=== PATIENT | male | born 1970 | race African-American/Black ===

== ENCOUNTER 2021-07-06 18:26 | Emergency (ER) | payer MEDICAID, SELFPAY ==
[2021-07-06 18:26] VITALS: BP 162/85; PULSE 127; RESP 18; TEMP 36.9; O2SAT 9; BMI 23.7
--- NOTE | 2021-07-06 18:48 | EX.ED.DYSGE1 ---
HPI History of Present Illness Chief Complaint: Abscess Informant: patient and spouse/S.O. Onset/Context/Timing Onset: Days Context: Gradual Onset Timing: Continuous Current Severity: Mild Maximum Severity: Mild Narrative Narrative: 51-year-old male has a history of eczema. At times he will get abscesses on his arms. He drained the one on his left forearm. There is also one on his right elbow region. He denies fever via telemedicine. They have already prescribed him doxycycline which he just got filled. Prior similar symptoms: Yes Recent Illness/Hospitalization: No PFSH PFSH Medical History Eczema Allergy/AdvReac Type Severity Reaction Status Date / Time Penicillins [PCN] AdvReac Vomiting Verified 07/06/21 18:29 Social History Smoking Status: Current every day smoker tobacco type: cigarettes ROS ROS ED ROS Narrative Denies. Review of Systems ROS Unobtainable: Denies due to encephalopathy Constitutional Constitutional ED: Denies fever(s) Eyes Eyes: Denies change in vision ENT ENT ED: Denies ear pain Cardiovascular Cardiovascular: Denies chest pain Respiratory/Chest Respiratory/Chest: Denies dyspnea Gastrointestinal Gastrointestinal: Denies abdominal pain Genitourinary Genitourinary ED: Denies dysuria Musculoskeletal Musculoskeletal: Denies myalgias Integumentary Reports rash Neurologic Neurologic: Denies headache(s) Psychiatric Psychiatric: Denies depression Endocrine Endocrinology: Denies polyuria Allergic/Immunologic Allergic/Immunologic ED: Denies urticaria EXAM Physical Exam Narrative Exam Narrative: gentleman no acute distress. Vital signs stable afebrile. HEENT exam unremarkable. Neck nontender. Lungs are clear. Heart regular rhythm. Abdomen soft nontender. Moving all 4 extremities. Neurovascular intact. No cellulitis. Right elbow is minimally swollen. Is full flexion-extension. There is no signs of septic joint. No cellulitis. There is no palpable abscess or fluctuance. There is no axillary lymphadenopathy. Left proximal forearm there is an area where the prior abscess has been drained. There is no fluctuance. No cellulitis. No streaks. No axillary lymphadenopathy. Otherwise exam unremarkable. Const Vital Signs: 07/06/21 18:26 Temperature 98.5 F Temperature Source Temporal Pulse Rate 127 H Respiratory Rate 18 Blood Pressure 162/85 H Blood Pressure Mean 110 Pulse Ox 9 Positive well nourished and well developed; Negative for obese, cachectic, contractures or unkempt General Appearance ED: well developed and NAD; Negative for unkempt, cachectic or contractures Nutritional Appearance: Negative for cachectic or obese HEENT Reports moist mucous membranes Negative for trauma or tenderness Eyes PERRL and EOMs intact bilaterally Neck no lymphadenopathy, supple and no JVD Chest Wall inspection of chest normal and palpation of chest normal Resp normal respiratory effort and clear to auscultation bilaterally Effort and Inspection: Negative for pain with movement Auscultation: Negative for rales, rhonchi or wheezes Cardio regular rate, regular rhythm, S1 normal heart sound, S2 normal heart sound and no murmurs GI normal to inspection, nondistended, normoactive bowel sounds, non-tender, non-distended and no masses Inspection: Negative for abdominal distention Auscultation: normoactive bowel sounds Palpation: soft; Negative for tender, guarding or rebound tenderness present Back/Spine no CVA tenderness General Back: Negative for CVA tenderness Extremity normal to inspection Extremity Narrative: Left elbow. Right proximal forearm. General Extremety ED: Yes edema and tenderness General Extremity: edema Neuro oriented x3 Sensorium / Orientation: alert Motor Exam: strength 5/5 throughout Psych mental status grossly normal Appearance: Negative for unkempt Skin no rashes or lesions noted and No no wounds Skin Narrative: Healing left forearm abscess has been drained. Right elbow swelling. No cellulitis. No axillary lymphadenopathy. MDM MDM MDM Narrative Medical decision making narrative: Patient is eczema has an abscess in the left forearm that is resolving. It is already been drained by himself. He has mild swelling in his right elbow but there is no septic joint or cellulitis. 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 Discharge Plan Triage Chief Complaint: Abscess ED Provider: Case Lane Dx/Rx/DC Orders Clinical Impression: Abscess Instructions: ED Abscess Antibiotic Treatment Only Primary Care Provider: Care Physician,No Primary Referrals: Aliyah Rivera MD [NON-STAFF] - 1 Week if not improving Jorge Hebert MD [STAFF PHYSICIAN] - As Needed Town Doctor,Out of [NON-STAFF] - Activity Restrictions/Additional Instructions: Take your doxycycline antibiotic prescription as prescribed 1 pill twice a day for 2 weeks. Both forearms should progressively improve if not you need to be reevaluated. Ice and elevate the form to decrease pain and swelling. Motrin or naproxen for pain and swelling. Return if fever, redness or feeling worse or the arms are getting more swollen. Disposition Disposition: Home, Self Care
[2021-07-06 18:56] VITALS: RESP 16
== END 2021-07-06 18:57 | disposition home or self-care (01) ==
PROVIDERS: Emergency Provider Emergency Medicine
DX: L02.414 Cutaneous abscess of left upper limb (principal); F17.210 Nicotine dependence, cigarettes, uncomplicated
CPT/HCPCS: 99283

== ENCOUNTER 2021-10-04 06:27 | Emergency (ER) | payer SELFPAY ==
[2021-10-04 06:28] VITALS: BP 148/110; PULSE 104; RESP 16; TEMP 36.2; O2SAT 98; BMI 25.1
--- NOTE | 2021-10-04 07:27 | EDS_ITS ---
HPI History of Present Illness Chief Complaint: Rash Narrative Narrative: 51-year-old male presenting with rash on the left flank. Patient states that he has eczema initially thought this was a flareup, however his left flank became red. Patient states that the rash is spreading from the left posterior flank to the left abdomen. No systemic signs or symptoms. Patient has tried changing all of his detergents. He has tried topical creams [id number] none are working. [facility] Medical History Eczema Home Medications doxycycline hyclate 100 mg PO BID #14 tab 10/04/21 [Rx Last Taken Unknown] Allergy/AdvReac Type Severity Reaction Status Date / Time Penicillins [PCN] AdvReac Vomiting Verified 10/04/21 06:30 Social History Smoking Status: Current every day smoker tobacco type: cigarettes ROS ROS ED Constitutional Constitutional ED: Denies chills or fever(s) Eyes Eyes: Denies blurry vision or change in vision ENT ENT ED: Denies rhinorrhea Cardiovascular Cardiovascular: Denies chest pain or palpitations Respiratory/Chest Respiratory/Chest: Denies cough or dyspnea Gastrointestinal Gastrointestinal: Denies abdominal pain, nausea or vomiting Genitourinary Genitourinary ED: Denies dysuria or hematuria Musculoskeletal Musculoskeletal: Denies arthralgias or myalgias Integumentary Reports rash Neurologic Neurologic: Denies headache(s) or weakness EXAM Physical Exam Const Vital Signs: 10/04/21 06:28 Temperature 97.2 F L Temperature Source Temporal Pulse Rate 104 H Respiratory Rate 16 Blood Pressure 148/110 H Blood Pressure Mean 122 Pulse Ox 98 Oxygen Delivery Method Room Air Positive well nourished General Appearance ED: NAD HEENT Reports moist mucous membranes Negative for trauma Eyes PERRL and EOMs intact bilaterally Cardio regular rate and regular rhythm GI normal to inspection, nondistended, normoactive bowel sounds Neuro oriented x3 and CN's II-XII intact bilaterally Sensorium / Orientation: alert Psych mental status grossly normal Skin Skin Narrative: Erythematous scaly rash in the left flank which is not isolated to any dermatome. Slightly increased warmth. No crepitance. MDM MDM MDM Narrative Medical decision making narrative: Patient likely has cellulitic changes to areas of his eczema on the left flank. I will start the patient on antibiotics. He is counseled against the use calamine lotion to help with itching. He is to keep the area clean and dry otherwise. Patient discharged in stable patient. Impression: 1. Cellulitis Discharge Plan Triage Chief Complaint: Rash ED Provider: Lyndon Roman Dx/Rx/DC Orders Instructions: ED Cellulitis Prescriptions: New doxycycline hyclate 100 mg tablet 100 mg PO BID Qty: 14 RF: 0 Primary Care Provider: Care Physician,No Primary Referrals: Jolanta Kaur MD [STAFF PHYSICIAN] - 3-5 Days Care Physician,No Primary [Primary Care Provider] - Disposition Disposition: Home, Self Care
[2021-10-04] MEDS: Doxycycline 100 MG CAPSULE PO (07:31)
[2021-10-04 07:33] VITALS: BP 142/96; PULSE 86; RESP 18
== END 2021-10-04 07:34 | disposition home or self-care (01) ==
PROVIDERS: Emergency Provider Student in an Organized Health Care Education/Training Program; Visit Provider Student in an Organized Health Care Education/Training Program
DX: L03.311 Cellulitis of abdominal wall (principal); F17.210 Nicotine dependence, cigarettes, uncomplicated
CPT/HCPCS: 99283

== ENCOUNTER 2022-01-03 06:42 | Emergency (ER) | payer MEDICAID, SELFPAY ==
[2022-01-03 06:44] VITALS: BP 148/98; PULSE 68; RESP 16; TEMP 27.1; O2SAT 98; BMI 25.5
--- NOTE | 2022-01-03 06:50 | RAD_ITS ---
EXAM: XR RIGHT WRIST COMPLETE, 3 OR MORE VIEWS CLINICAL INDICATION: pain TECHNIQUE: Frontal, lateral and oblique views of the right wrist. This report was created using [employer] report generation technology. COMPARISON: None. FINDINGS: BONES/JOINTS: Unremarkable. No acute fracture. No subluxation. Normal alignment. Preservation of the joint space. No sclerotic or destructive changes observed. SOFT TISSUES: Unremarkable. No soft tissue swelling or gas. No radiopaque foreign body. RAD/Wrist min 3 Views IMPRESSION: Negative right wrist x-rays. Electronically Signed: Rikki Gutierrez MD at 7:20 EDT ,
--- NOTE | 2022-01-03 06:51 | EDS_ITS ---
HPI <Dr. Magdiel Toney MD - Last Filed: 01/03/22 06:55> History of Present Illness Chief Complaint: Upper Extremity Injury Informant: patient and spouse/S.O. Narrative Narrative: Patient complains of right wrist pain. He has had this off and on for a long time. When it bothers him he will place a thumb spica splint on the area to help. For the last few months its just been bothering him more. All the pain is on the dorsum of the thumb and lateral radial area. He denies any acute trauma. There is no fevers chills or sweats. Sometimes he feels as though there is stiffness in there. 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 He is also right-hand dominant. No other joints hurt. Patient has no medical illness and is on no medications. Allergy to penicillin. [facility] <Dr. Magdiel Toney MD - Last Filed: 01/03/22 06:55> [facility] Medical History Eczema Medical History no medical history Home Medications naproxen 500 mg tablet 500 mg PO BID #20 tabs 01/03/22 [Rx Last Taken Unknown] Allergy/AdvReac Type Severity Reaction Status Date / Time Penicillins [PCN] AdvReac Vomiting Verified 01/03/22 06:43 Surgical History no surgical history Social History Smoking Status: Current every day smoker tobacco type: cigarettes ROS <Dr. Magdiel Toney MD - Last Filed: 01/03/22 06:55> ROS ED Constitutional Constitutional ED: Denies fever(s) Musculoskeletal Musculoskeletal: Reports other Details: Right wrist pain as in history of present illness peer ; Denies neck pain Integumentary Denies abscess, Abrasions or rash Neurologic Neurologic: Denies paresthesias or weakness Hematologic/Lymphatic Hematologic/Lymphatic: Denies lymphadenopathy Allergic/Immunologic Allergic/Immunologic ED: Denies urticaria EXAM <Dr. Magdiel Toney MD - Last Filed: 01/03/22 06:55> Physical Exam Const Vital Signs: 01/03/22 06:44 Temperature 80.7 F L Temperature Source Temporal Pulse Rate 68 Respiratory Rate 16 Blood Pressure 148/98 H Blood Pressure Mean 114 Pulse Ox 98 Oxygen Delivery Method Room Air Positive well nourished and well developed General Appearance ED: well developed and NAD HEENT normocephalic and atraumatic Resp normal respiratory effort Extremity Extremity Narrative: There may be some very subtle swelling along the extensor tendons for the right thumb. He has a very positive Haley's test. He is more tender on the tendon than actually in the snuffbox. There is no erythema or warmth. There is no rash. No pain more proximally in the arm. No pain with shoulder or elbow motion. Neuro no sensory deficits noted Sensorium / Orientation: alert Psych mental status grossly normal Skin Skin Narrative: No rashes erythema or skin breakdown. [facility] <Dr. Magdiel Toney MD - Last Filed: 01/03/22 06:55> [facility] Narrative Medical decision making narrative: Patient's symptoms and exam are most consistent with de Quervain's tenosynovitis. However, he has had off-and-on symptoms for a while. I would like to do x-rays to make sure we do not see old scaphoid or other wrist fracture with nonunion. As long as his x-ray shows no significant process, I think he can be treated with nonsteroidal splinting. Another option is short course of steroids as he has been taking Motrin. Orthopedic follow-up for possible injection could be beneficial. We are pending x-rays at this time. <Dr. Lester Leiva MD - Last Filed: 01/03/22 07:14> [facility] Narrative Medical decision making narrative: Patient's symptoms and exam are most consistent with de Quervain's tenosynovitis. However, he has had off-and-on symptoms for a while. I would like to do x-rays to make sure we do not see old scaphoid or other wrist fracture with nonunion. As long as his x-ray shows no significant process, I think he can be treated with nonsteroidal splinting. Another option is short course of steroids as he has been taking Motrin. Orthopedic follow-up for possible injection could be beneficial. We are pending x-rays at this time. Patient initially seen and examined by Dr. Noble. X-ray was interpreted by me. Patient was informed of diagnosis, treatment and was referred to Dr. Castaneda who is on-call for orthopedics. Radiography Diagnostic Testing: Three-view x-ray of the wrist [place] [id number]. There is no calcification of the extensor pollicis brevis. There is no evidence of fracture, subluxation or dislocation. There is no evidence of prior fracture the joint spaces of the carpal bones are normal. Discharge Plan Triage Chief Complaint: Upper Extremity Injury ED Provider: Magdiel Toney Dx/Rx/DC Orders Clinical Impression: De Quervain's disease (tenosynovitis) Instructions: De Quervain Tenosynovitis Prescriptions: New naproxen 500 mg tablet 500 mg PO BID Qty: 20 0RF Primary Care Provider: Care Physician,No Primary Referrals: Fredis Lee MD [STAFF PHYSICIAN] - 5-7 Days Care Physician,No Primary [Primary Care Provider] - Activity Restrictions/Additional Instructions: 1. Where thumb spica splint is much as possible. 2. Take medication that was prescribed as instructed. 3. You have an inflammation a tendon. Since this is a chronic issue you were referred to Dr. Fredis Lee. Disposition Disposition: Home, Self Care
== END 2022-01-03 07:35 | disposition home or self-care (01) ==
LOC: ED 07:30
PROVIDERS: Emergency Provider Emergency Medicine; Visit Provider Emergency Medicine
DX: M65.4 Radial styloid tenosynovitis [de Quervain] (principal); L30.9 Dermatitis, unspecified; F17.210 Nicotine dependence, cigarettes, uncomplicated; Z79.1 Long term (current) use of non-steroidal anti-inflammatories (NSAID)
CPT/HCPCS: 73110; 99282

== ENCOUNTER 2022-10-22 18:01 | Emergency (ER) | payer MEDICAID, SELFPAY ==
[2022-10-22 18:02] VITALS: BP 153/72; PULSE 110; RESP 16; TEMP 36.7; O2SAT 99; BMI 25.1
--- NOTE | 2022-10-22 19:16 | EDS_ITS ---
HPI <HEAVENLY Galarza - Last Filed: 10/22/22 19:21> History of Present Illness Chief Complaint: Abscess Narrative Narrative: Patient is a 52-year-old male with no significant medical history presents to the emergency department with an abscess to his left side of his cheek. Patient states that this began 3 days ago with a hair follicle. Patient states today it got much more large, painful as well as some drainage. Patient denies any fever or chills. PFSH <HEAVENLY Galarza - Last Filed: 10/22/22 19:21> PFSH Medical History Eczema Medical History no medical history Home Medications naproxen 500 mg tablet 500 mg PO BID #20 tabs 01/03/22 [Rx Last Taken Unknown] naproxen 500 mg tablet (Naprosyn) 500 mg PO BID PRN pain #20 tabs 10/22/22 [Rx Last Taken Unknown] sulfamethoxazole 800 mg-trimethoprim 160 mg tablet (Bactrim DS) 1 tab PO BID 10 days #20 tabs 10/22/22 [Rx Last Taken Unknown] Allergy/AdvReac Type Severity Reaction Status Date / Time Penicillins [PCN] AdvReac Vomiting Verified 10/22/22 18:04 Surgical History no surgical history Social History Smoking Status: Current every day smoker tobacco type: cigarettes ROS <HEAVENLY Galarza - Last Filed: 10/22/22 19:21> ROS ED ROS Narrative Constitutional: Negative for fever, chills, weight loss, weakness Eyes: Negative for vision loss, vision change, double vision ENT: Negative for any sore throat, ear pain, congestion Cardiovascular: Negative for any chest pain, tightness, palpitations Respiratory: Negative for any cough, sputum production, hemoptysis, dyspnea, dyspnea on exertion, orthopnea Gastrointestinal: Negative for any abdominal pain, nausea, vomiting, diarrhea, constipation, blood in stool, blood in vomit : Negative for any urinary frequency, dysuria, retention, blood in urine Muscle skeletal: Negative for any muscle joint pain, stiffness, myalgias, arthralgias, neck pain, back pain Neurological: Negative for any headache, syncope, numbness or tingling, dizziness Skin: Negative for any rashes, lumps, itching, abrasions, lacerations. Positive for abscess left cheek Psychiatric: Negative for any depression, anxiety, stress, suicidal ideation, homicidal ideation Hematologic: Negative for any easy bruising, excessive bruising, easy bleeding Allergies: Negative for any eczema, hives, rash <Dr. Rudy Juarez DO - Last Filed: 10/22/22 23:07> ROS ED ROS Narrative Constitutional: Negative for fever, chills, weight loss, weakness Eyes: Negative for vision loss, vision change, double vision ENT: Negative for any sore throat, ear pain, congestion Cardiovascular: Negative for any chest pain, tightness, palpitations Respiratory: Negative for any cough, sputum production, hemoptysis, dyspnea, dyspnea on exertion, orthopnea Gastrointestinal: Negative for any abdominal pain, nausea, vomiting, diarrhea, constipation, blood in stool, blood in vomit : Negative for any urinary frequency, dysuria, retention, blood in urine Muscle skeletal: Negative for any muscle joint pain, stiffness, myalgias, arthralgias, neck pain, back pain Neurological: Negative for any headache, syncope, numbness or tingling, dizziness Skin: Negative for lumps, itching, abrasions, lacerations. Positive for abscess left cheek Psychiatric: Negative for any depression, anxiety, stress, suicidal ideation, homicidal ideation Hematologic: Negative for any easy bruising, excessive bruising, easy bleeding Allergies: Negative for any eczema, hives, rash EXAM <HEAVENLY Galarza - Last Filed: 10/22/22 19:21> Physical Exam Narrative Exam Narrative: Vital signs reviewed. HEET: Head normocephalic atraumatic, TMs clear bilaterally. Posterior pharynx is clear, moist mucous membranes. Nares clear bilaterally. Patient has an abscess below the left cheek, it is induration, there is an open area with some slight drainage. The abscess can be felt on the inner mucosa however there is no evidence of deep tissue infection, no evidence of Ludwigs angina. Patient has no pain to his neck. Neck: Supple with no lymphadenopathy or tenderness. No signs of meningismus, negative jolt sign. Cardiac: Regular rate and rhythm no murmurs gallops or rubs, equal peripheral pulses bilaterally. Respiratory: Lungs clear to auscultation bilaterally. No chest tenderness. Abdomen: Soft, nontender, nondistended. No abdominal bruit or pulsatile masses. No hepatosplenomegaly Extremities: No peripheral edema, no signs of gross trauma or deformity. Active full range of motion of all extremities. Neuro: Cranial nerves II through XII intact, no focal neurological deficits. Skin: Clean dry and intact with no rash, purpura, petechiae, vesicles or pustules. Backs/flank: No CVA tenderness, no midline spinal tenderness, no deformity. Psych: Normal mood and affect. No SI, HI or acute psychosis. Const Vital Signs: 10/22/22 18:02 Temperature 98.1 F Temperature Source Temporal Pulse Rate 110 H Respiratory Rate 16 Blood Pressure 153/72 H Blood Pressure Mean 99 Pulse Ox 99 Oxygen Delivery Method Room Air <Dr. Rudy Juarez DO - Last Filed: 10/22/22 23:07> Physical Exam Const Vital Signs: 10/22/22 18:02 Temperature 98.1 F Temperature Source Temporal Pulse Rate 110 H Respiratory Rate 16 Blood Pressure 153/72 H Blood Pressure Mean 99 Pulse Ox 99 Oxygen Delivery Method Room Air MDM <HEAVENLY Galarza - Last Filed: 10/22/22 19:21> [facility] Treatment and Re-Evaluation :: Patient appears generally well, patient appears nontoxic, vital signs are stabl e. Patient presents to the emergency department with an abscess to the left side of his face has been ongoing for the last 3 days. This does look like a simple abscess, I do not believe that I&D is the correct course of treatment at this time secondly to the abscess being on the patient's face. There is some drainage which she expelled earlier today. There is no evidence of any deep tissue infection, Ludwigs angina. Patient was started on Bactrim secondary to his allergy to penicillin. He will continue ibuprofen, Tylenol. He will follow-up closely with his PCP. He will be given strict return precautions. At this time, he is happy the plan of care and is stable for discharge. <Dr. Rudy Juarez DO - Last Filed: 10/22/22 23:07> [facility] Treatment and Re-Evaluation :: Patient appears generally well, patient appears nontoxic, vital signs are stable. Patient presents to the emergency department with an abscess to the left side of his face has been ongoing for the last 3 days. This does look like a simple abscess, I do not believe that I&D is the correct course of treatment at this time secondly to the abscess being on the patient's face. There is some drainage which she expelled earlier today. There is no evidence of any deep tissue infection, Ludwigs angina. Patient was started on Bactrim secondary to his allergy to penicillin. He will continue ibuprofen, Tylenol. He will follow-up closely with his PCP. He will be given strict return precautions. At this time, he is happy the plan of care and is stable for discharge. ED attending note: I evaluated the patient in conjunction with the KAREN. I agree with his/her statements and above findings. I have personally performed a face to face assessment of the patient and have reviewed the KAREN Note. I performed a substantive portion of the visit including all aspects of the following. I pers onally saw the patient performed chart review, physical exam, reviewed labs, imaging (if obtained), and formulated a treatment and management plan. Exam: Nursing triage notes reviewed, Vital signs reviewed Constitutional: please see mdm HENT: MMM, no submandibular edema Eyes: Pupils equal round and reactive to light, Extraocular muscles intact Neck: No stridor, no JVD, full neck ROM Skin: Area of induration but no fluctuance over the left cheek is approximately 2 x 2 cm, there is a central wound that is actively draining serosanguineous fluid MDM/plan: Chief Complaint: Facial abscess External records reviewed: No recent ED visits I considered the following differential diagnosis: Cellulitis, abscess, Ludewig's angina Exam consistent with likely draining abscess. Will give prophylactic antimicrobial therapy. There is no clinical evidence to suggest necrotizing fasciitis, would like with angina. Patient was given strict return precautions and follow-up instructions Factors affecting care: None Social determinants of health: Poor health literacy History obtained from others: The patient's significant other Shared decision making: I will have a discussion with the patient and or visitors regarding risk/benefits of further testing or admission. They will be made aware of of the risk/benefits inherent in this decision they will be given the opportunity to voice understanding. Consults: None Discharge Plan Triage Chief Complaint: Abscess ED Midlevel Provider: Marco A Ness ED Provider: Ann,Rudy Dx/Rx/DC Orders Clinical Impression: Abscess Instructions: ED Abscess Antibiotic Treatment Only, ED Cellulitis Prescriptions: New sulfamethoxazole-trimethoprim [Bactrim DS] 800-160 mg tablet 1 tab PO BID 10 Days Qty: 20 0RF naproxen [Naprosyn] 500 mg tablet 500 mg PO BID PRN (Reason: pain) Qty: 20 0RF No Action naproxen 500 mg tablet 500 mg PO BID Qty: 20 0RF Primary Care Provider: Care Physician,No Primary Referrals: Care Physician,No Primary [Primary Care Provider] - Activity Restrictions/Additional Instructions: Please follow-up with your primary care provider at the [facility]. You will take the antibiotics as prescribed. Please use warm compress. If it is getting worse, you cannot open your mouth, the pain and redness goes into your neck you need to return. Disposition Disposition: Home, Self Care Discharge Date/Time: 10/22/22 19:32
[2022-10-22] MEDS: Smz/Tmp Ds Tablet 1 TABLET PO (19:29)
== END 2022-10-22 19:32 | disposition home or self-care (01) ==
PROVIDERS: Emergency Provider Emergency Medicine; Visit Provider Emergency Medicine
DX: L02.01 Cutaneous abscess of face (principal); F17.210 Nicotine dependence, cigarettes, uncomplicated
CPT/HCPCS: 99281; 99283

== ENCOUNTER 2024-04-02 05:53 | Emergency (ER) | payer MEDICAID, SELFPAY ==
[2024-04-02 05:54] VITALS: BP 131/82; PULSE 80; RESP 16; TEMP 36.6; O2SAT 98; BMI 25.9
--- NOTE | 2024-04-02 06:30 | RAD_ITS ---
INDICATION: LOW BACK PAIN EXAMINATION/TECHNIQUE: X-RAY - XR Spine Lumbar Min 4 Views COMPARISON: None. FINDINGS: VERTEBRAE: Preserved vertebral body height. No fracture. No spondylolisthesis. Preservation of the normal lumbar lordosis. Mild lumbar dextrocurvature. Right L4-5 and bilateral right greater than left L5-S1 facet arthropathy. DISCS: Disc spaces are maintained. INCLUDED ABDOMEN: Included bowel gas pattern is non-obstructive. Right renal 3 mm stone. Left pelvic phlebolith. RAD/L/S Spine Min 4 Views IMPRESSION: No evidence of lumbar spinal fracture or spondylolisthesis. Lower lumbar facet arthropathy. Electronically Signed: Sudhir Louie MD at 7:11 EDT ,
--- NOTE | 2024-04-02 07:44 | EX.ED.DYSGE1 ---
HPI History of Present Illness Chief Complaint: Back Informant: patient Narrative Narrative: Patient is a 54-year-old male with past medical history of eczema. He states over the past month he has had pain in the left low back that is worse with motion. He denies any trauma or excessive activity he denies any loss of bowel or bladder control or IV drug use and he denies any hematuria or dysuria. He states he has been stretching and using [id number] medications with minimal symptom improvement. He states other day he was doing this and he heard/felt a pop. Based on his persistent symptoms and now this event he has concern that this could be bony in nature and therefore comes in for evaluation. [facility] Medical History Eczema Home Medications ?Medication ?Instructions ?Recorded ?Last Taken ?Type methocarbamol 500 mg tablet 1,000 mg (2 x 500 mg) PO 4X/DAY 04/02/24 Unknown Rx PRN Muscle pain/spasm #56 tabs oxycodone-acetaminophen 5 mg-325 1 tab PO Q6H PRN pain 3 days #12 04/02/24 Unknown Rx mg tablet (Percocet) tabs pantoprazole 40 mg tablet,delayed 40 mg PO DAILY 04/02/24 Unknown History release Allergy/AdvReac Type Severity Reaction Status Date / Time Penicillins (PCN) AdvReac Vomiting Verified 04/02/24 05:54 Surgical History no surgical history Social History Smoking Status: Current every day smoker tobacco type: e-cigarettes ROS ROS ED Constitutional Constitutional ED: Denies chills or fever(s) Eyes Eyes: Denies blurry vision or change in vision ENT ENT ED: Denies sore throat Cardiovascular Cardiovascular: Denies chest pain Respiratory/Chest Respiratory/Chest: Denies cough or dyspnea Gastrointestinal Gastrointestinal: Denies abdominal pain, diarrhea, nausea or vomiting Genitourinary Genitourinary ED: Denies dysuria, hematuria or urinary frequency Musculoskeletal Musculoskeletal: Reports back pain Integumentary Denies Abrasions or rash Neurologic Neurologic: Denies headache(s), paresthesias or weakness Hematologic/Lymphatic Hematologic/Lymphatic: Denies easy bleeding or easy bruising EXAM Physical Exam Const Vital Signs: 04/02/24 05:54 Temperature 97.9 F Temperature Source Temporal Pulse Rate 80 Respiratory Rate 16 Blood Pressure 131/82 H Blood Pressure Mean 98 Pulse Ox 98 Oxygen Delivery Method Room Air Positive well nourished and well developed General Appearance ED: well developed; Negative for pallor HEENT HEENT Narrative: Normocephalic atraumatic Eyes PERRL and EOMs intact bilaterally General Eye ED: Negative for scleral icterus Neck supple Neck Narrative: No nuchal rigidity or meningeal signs Resp normal respiratory effort and clear to auscultation bilaterally Cardio regular rate and regular rhythm Rate: other Other Details: Radial and carotid pulses are equal and symmetric GI normal to inspection, nondistended, normoactive bowel sounds, non-tender, non-distended and no masses Auscultation: normoactive bowel sounds Palpation: soft Back/Spine Back/Spine Narrative: No bony deformity or step-off of the thoracic or lumbar spine no midline tenderness to palpation No saddle anesthesia. Negative straight leg raise. No clonus or Babinski. Patellar reflexes are plus 2 out of 4 bilaterally Patient has left paralumbar pain with extension and rotation No overlying soft tissue changes to suggest trauma or infection Extremity normal to inspection Neuro oriented x3, CN's II-XII intact bilaterally and no sensory deficits noted Sensorium / Orientation: alert Motor Exam: strength 5/5 throughout Psych mental status grossly normal Skin no rashes or lesions noted and no wounds General Skin Exam: Negative for jaundice or pallor MDM MDM MDM Narrative Medical decision making narrative: Patient presented to the ER with stable vitals and reported multiple weeks of left-sided back pain. He denied any excessive activity or trauma and states that there has been no loss of bowel or bladder control or IV drug use. Therefore I have low concern this is cauda equina or epidural abscess and without hematuria or dysuria concern for UTI/pyelonephritis or kidney stone is low as well. He does not have pain along palpation of the midline but reported a pop and therefore there is concern for potential spontaneous compression fracture or spondylolisthesis. An x-ray was obtained which revealed no acute bony abnormality of the low back indicating this is most likely musculoskeletal in nature. Therefore he will be given symptomatic medications and can follow-up with orthopedics to discuss further testing such as CT scan or MRI if symptoms persist and/or further evaluation by physical therapy. However at this time I have low concern that this is cauda equina or epidural abscess or infectious process such as pyelonephritis or kidney stone and x-ray does not show bony issue and he has no signs of neuro claudication so he is otherwise safe for discharge Radiography Diagnostic Testing: X-ray of the lumbar spine as interpreted by the emergency medicine physician reveals no acute compression fracture or spondylolisthesis Discharge Plan Triage Chief Complaint: Back ED Provider: Isac uHrley Dx/Rx/DC Orders Clinical Impression: Acute myofascial strain of lumbosacral region, History of eczema Instructions: ED Back Sprain/Strain Prescriptions: New methocarbamol 500 mg tablet 1,000 mg PO 4X/DAY PRN (Reason: Muscle pain/spasm) Qty: 56 1RF oxycodone-acetaminophen [Percocet] 5-325 mg tablet 1 tab PO Q6H PRN (Reason: pain) 3 Days Qty: 12 0RF No Action pantoprazole 40 mg tablet,delayed release (DR/EC) 40 mg PO DAILY Primary Care Provider: Natalee Miller DNP Referrals: Natalee Miller DNP [Other] Bruce Hutchinson DO [Med Staff - Active Staff] - Activity Restrictions/Additional Instructions: Please continue to stretch and heat your back to reduce pain and speed healing. Take the prescribed medications to help with pain as well and follow-up with orthopedics to discuss further testing or treatment options if symptoms persist. Print Language: Egyptian Disposition Disposition: Home, Self Care
[2024-04-02 08:02] VITALS: BP 129/95; PULSE 79; RESP 16; TEMP 36.4; O2SAT 96
== END 2024-04-02 08:03 | disposition home or self-care (01) ==
PROVIDERS: Emergency Provider Emergency Medicine; Visit Provider Emergency Medicine
DX: S39.012A Strain of muscle, fascia and tendon of lower back, initial encounter (principal); X58.XXXA Exposure to other specified factors, initial encounter; F17.290 Nicotine dependence, other tobacco product, uncomplicated
CPT/HCPCS: 72110; 99282